=== PATIENT | male | born 1980 | race Caucasian/White ===

== ENCOUNTER 2022-10-24 02:57 | Inpatient (IN) | payer MEDICAID, OTHER ==
[~2022-10-24] VITALS: Ht 182.9 cm; Wt 83.9 kg
[2022-10-24 05:34] LABS: BASOPHILS % (AUTO) 0.4 % (0.0-2.0); EOSINOPHILS % (AUTO) 0.1 % (1.0-6.0); HEMATOCRIT 47.7 % (41-53); LYMPHOCYTES # (AUTO) 1.6 K/uL (1.0-4.8); LYMPHOCYTES % (AUTO) 14.6 % (22.0-44.0); MEAN CORPUSCULAR HEMOGLOBIN 32.6 pg (26.0-34.0); MEAN CORPUSCULAR HGB CONC 33.5 G/dL (31.0-37.0); MEAN CORPUSCULAR VOLUME 97 fL (80-100); MONOCYTES # (AUTO) 1.2 K/uL (0.1-1.0); NEUTROPHILS # (AUTO) 8.1 K/uL (1.8-7.7); NEUTROPHILS % (AUTO) 73.9 % (40.0-70.0); PLATELET COUNT (AUTO) 283 K/uL (150-450); RED CELL DISTRIBUTION WIDTH 13.4 % (11.5-14.5)
[2022-10-24 05:40] LABS: ANION GAP 11 mmol/L (8-16); CALCIUM, TOTAL 9.4 mg/dL (8.8-10.5); CARBON DIOXIDE 29 mmol/L (22-29); CHLORIDE 99 mmol/L (98-107); CREATININE 1.21 mg/dL (0.60-1.30); GLOMERULAR FILTR. RATE CALC > 60 mL/min (>60); GLUCOSE,RANDOM 97 mg/dL (70-110); POTASSIUM 4.5 mmol/L (3.5-5.1); SODIUM SERUM 139 mmol/L (136-145); UREA NITROGEN, BLOOD 21 mg/dL (7-18)
[2022-10-24 05:46] LABS: ALANINE AMINOTRANSFERASE 29 U/L (12-78); ALBUMIN 4.4 g/dL (3.4-5.0); ALKALINE PHOSPHATASE 55 U/L (46-116); ASPARTATE AMINOTRANSFERASE 56 U/L (15-37); BILIRUBIN,TOTAL 0.7 mg/dL (0.1-1.0)
[2022-10-24] MEDS ORDERED: OLANZapine 5 MG TABLET PO ONE (09:15)
[2022-10-24] MEDS ORDERED: LORazepam 1 MG TABLET PO ONE (09:15)
[2022-10-24 11:02] LABS: COVID AG,FIA SOURCE NASAL SWAB
[2022-10-24 14:33] VITALS: BP 135/71
[2022-10-24 16:11] VITALS: BP 143/74
[2022-10-24] MEDS: HALOPERIDOL 5 MG TABLET PO PRN ×2 (16:38→20:38)
[2022-10-24] MEDS: LORazepam 2 MG TABLET PO PRN ×2 (16:38→20:39)
[2022-10-24] MEDS: ZOLPIDEM TARTRATE 10 MG TABLET PO PRN (20:39)
[2022-10-25] MEDS: HALOPERIDOL 5 MG TABLET PO PRN ×3 (02:36→16:55)
[2022-10-25] MEDS: LORazepam 2 MG TABLET PO PRN ×4 (02:36→21:49)
[2022-10-25] MEDS ORDERED: OMEPRAZOLE 20 MG CAPSULE PO PRN (07:00)
[2022-10-25] MEDS ORDERED: ONDANSETRON HCL 4 MG TABLET PO PRN (07:00)
[2022-10-25] MEDS ORDERED: CloNIDine HCL 0.1 MG TABLET PO PRN (07:00)
[2022-10-25] MEDS ORDERED: LOPERAMIDE HCL 2 MG CAPSULE PO PRN (07:00)
[2022-10-25] MEDS ORDERED: MAGNESIUM HYDROXIDE SUSPENSION 30 ML UDCUP PO PRN (07:00)
[2022-10-25] MEDS ORDERED: BACITRACIN 28 GM OINTMENT TP PRN (07:00)
[2022-10-25] MEDS ORDERED: BENZOCAINE/MENTHOL LOZENGE PO PRN (07:00)
[2022-10-25] MEDS ORDERED: ALBUTEROL SULFATE HFA 90 MCG/PUFF 8 GM INHALER IH PRN (07:00)
[2022-10-25] MEDS ORDERED: ACETAMINOPHEN 325 MG TABLET PO PRN (07:00)
[2022-10-25] MEDS ORDERED: DOCUSATE SODIUM 100 MG CAPSULE PO PRN (07:00)
[2022-10-25] MEDS ORDERED: PETROLATUM,WHITE 28 GM JELLY TP PRN (07:00)
[2022-10-25] MEDS ORDERED: MAG HYDROX/AL HYDROX/SIMETH ES 30 ML SUSPENSION UDCUP PO PRN (07:00)
[2022-10-25 08:28] VITALS: BP 130/79
[2022-10-25 20:11] VITALS: BP 128/82
[2022-10-25] MEDS: ZOLPIDEM TARTRATE 10 MG TABLET PO PRN (20:12)
[2022-10-26] MEDS: LORazepam 2 MG TABLET PO PRN ×2 (08:46→17:31)
[2022-10-26] MEDS: HALOPERIDOL 5 MG TABLET PO PRN ×2 (08:46→17:31)
[2022-10-26] MEDS: RisperiDONE 3 MG TABLET PO SCH ×2 (08:46→17:31)
[2022-10-26] MEDS ORDERED: HALOPERIDOL LACTATE 5 MG/ML VIAL IM ONE (10:15)
[2022-10-26] MEDS ORDERED: LORazepam 2 MG/ML VIAL IM ONE (10:15)
[2022-10-26] MEDS ORDERED: LORazepam 2 MG/ML VIAL ONE (10:17)
[2022-10-26] MEDS ORDERED: HALOPERIDOL LACTATE 5 MG/ML VIAL ONE (10:17)
[2022-10-26] MEDS ORDERED: BuPROPion HCL XL 150 MG ER TABLET PO SCH (10:30)
[2022-10-26 20:00] VITALS: BP 142/78
[2022-10-26] MEDS: ZOLPIDEM TARTRATE 10 MG TABLET PO PRN (20:50)
[2022-10-26] MEDS: LITHIUM CARBONATE 300 MG CAPSULE PO SCH (20:50)
[2022-10-26] MEDS: DIVALPROEX SODIUM 500 MG DR TABLET PO SCH (20:50)
[2022-10-27] MEDS: RisperiDONE 3 MG TABLET PO SCH ×2 (08:17→16:41)
[2022-10-27] MEDS: BuPROPion HCL XL 150 MG ER TABLET PO SCH (08:17)
[2022-10-27] MEDS: LITHIUM CARBONATE 300 MG CAPSULE PO SCH ×2 (08:17→20:55)
[2022-10-27] MEDS: DIVALPROEX SODIUM 500 MG DR TABLET PO SCH ×2 (08:17→20:55)
[2022-10-27 08:35] VITALS: BP 138/76
[2022-10-27] MEDS: HALOPERIDOL 5 MG TABLET PO PRN (16:41)
[2022-10-27] MEDS: LORazepam 2 MG TABLET PO PRN ×2 (16:41→20:55)
[2022-10-27 20:16] VITALS: BP 128/80
[2022-10-27] MEDS: ZOLPIDEM TARTRATE 10 MG TABLET PO PRN (20:55)
[2022-10-28 08:14] VITALS: BP 143/64
[2022-10-28] MEDS: RisperiDONE 3 MG TABLET PO SCH ×2 (09:29→16:57)
[2022-10-28] MEDS: LITHIUM CARBONATE 300 MG CAPSULE PO SCH ×2 (09:30→20:23)
[2022-10-28] MEDS: BuPROPion HCL XL 150 MG ER TABLET PO SCH (09:30)
[2022-10-28] MEDS: DIVALPROEX SODIUM 500 MG DR TABLET PO SCH ×2 (09:30→20:23)
[2022-10-28] MEDS: LORazepam 2 MG TABLET PO PRN ×3 (10:45→20:23)
[2022-10-28] MEDS: HALOPERIDOL 5 MG TABLET PO PRN (10:45)
[2022-10-28] MEDS: IBUPROFEN 600 MG TABLET PO PRN (14:57)
[2022-10-28 16:19] VITALS: BP 130/83
[2022-10-28] MEDS: ZOLPIDEM TARTRATE 10 MG TABLET PO PRN (20:23)
[2022-10-28 21:31] VITALS: BP 130/83
[2022-10-29] MEDS: DIVALPROEX SODIUM 500 MG DR TABLET PO SCH ×2 (09:27→20:09)
[2022-10-29] MEDS: BuPROPion HCL XL 150 MG ER TABLET PO SCH (09:28)
[2022-10-29] MEDS: RisperiDONE 3 MG TABLET PO SCH ×2 (09:28→17:46)
[2022-10-29] MEDS: LITHIUM CARBONATE 300 MG CAPSULE PO SCH ×2 (09:28→20:09)
[2022-10-29] MEDS: LORazepam 2 MG TABLET PO PRN ×4 (09:45→23:00)
[2022-10-29 10:25] VITALS: BP 135/78
[2022-10-29] MEDS: HALOPERIDOL 5 MG TABLET PO PRN (16:14)
[2022-10-29 20:08] VITALS: BP 128/64
[2022-10-29] MEDS: IBUPROFEN 600 MG TABLET PO PRN (20:08)
[2022-10-29 20:27] VITALS: BP 138/68
[2022-10-29] MEDS: ZOLPIDEM TARTRATE 10 MG TABLET PO PRN (23:23)
[2022-10-30 08:21] VITALS: BP 139/67
[2022-10-30] MEDS: LITHIUM CARBONATE 300 MG CAPSULE PO SCH ×2 (08:22→20:25)
[2022-10-30] MEDS: RisperiDONE 3 MG TABLET PO SCH ×2 (08:23→16:02)
[2022-10-30] MEDS: BuPROPion HCL XL 150 MG ER TABLET PO SCH (08:23)
[2022-10-30] MEDS: DIVALPROEX SODIUM 500 MG DR TABLET PO SCH ×2 (08:23→20:25)
[2022-10-30] MEDS: IBUPROFEN 600 MG TABLET PO PRN (10:53)
[2022-10-30] MEDS: LORazepam 2 MG TABLET PO PRN ×2 (10:53→14:54)
[2022-10-30] MEDS: HALOPERIDOL 5 MG TABLET PO PRN (14:54)
[2022-10-30 20:13] VITALS: BP 125/82
[2022-10-31] MEDS: ZOLPIDEM TARTRATE 10 MG TABLET PO PRN (00:04)
[2022-10-31] MEDS: LORazepam 2 MG TABLET PO PRN ×3 (03:03→15:59)
[2022-10-31] MEDS: HALOPERIDOL 5 MG TABLET PO PRN ×3 (03:04→15:59)
[2022-10-31 07:26] LABS: GLUCOMETER DEV NAME(LOC) POC.BV
[2022-10-31] MEDS: RisperiDONE 3 MG TABLET PO SCH ×2 (08:09→16:00)
[2022-10-31] MEDS: BuPROPion HCL XL 150 MG ER TABLET PO SCH (08:09)
[2022-10-31] MEDS: LITHIUM CARBONATE 300 MG CAPSULE PO SCH ×2 (08:09→20:38)
[2022-10-31] MEDS: DIVALPROEX SODIUM 500 MG DR TABLET PO SCH ×2 (08:09→20:38)
[2022-10-31 20:46] VITALS: BP 114/67
[2022-11-01] MEDS: BuPROPion HCL XL 150 MG ER TABLET PO SCH (08:05)
[2022-11-01] MEDS: DIVALPROEX SODIUM 500 MG DR TABLET PO SCH ×2 (08:05→20:14)
[2022-11-01] MEDS: RisperiDONE 3 MG TABLET PO SCH ×2 (08:05→16:39)
[2022-11-01] MEDS: LITHIUM CARBONATE 300 MG CAPSULE PO SCH ×2 (08:06→20:14)
[2022-11-01 08:22] VITALS: BP 117/67
[2022-11-01] MEDS: LORazepam 2 MG TABLET PO PRN ×3 (10:08→20:14)
[2022-11-01 20:20] VITALS: BP 124/70
[2022-11-01] MEDS: ZOLPIDEM TARTRATE 10 MG TABLET PO PRN (20:48)
[2022-11-01] MEDS: IBUPROFEN 600 MG TABLET PO PRN (21:10)
[2022-11-02 06:29] VITALS: BP 123/78
[2022-11-02] MEDS: LORazepam 2 MG TABLET PO PRN ×3 (06:33→20:37)
[2022-11-02] MEDS: HALOPERIDOL 5 MG TABLET PO PRN (06:33)
[2022-11-02] MEDS: IBUPROFEN 600 MG TABLET PO PRN (06:33)
[2022-11-02] MEDS: LITHIUM CARBONATE 300 MG CAPSULE PO SCH ×2 (08:02→20:37)
[2022-11-02] MEDS: BuPROPion HCL 75 MG TABLET PO SCH (08:02)
[2022-11-02] MEDS: DIVALPROEX SODIUM 500 MG DR TABLET PO SCH ×2 (08:02→20:37)
[2022-11-02] MEDS: RisperiDONE 3 MG TABLET PO SCH ×2 (08:02→16:56)
[2022-11-02 09:58] VITALS: BP 121/72
[2022-11-02 20:09] VITALS: BP 115/70
[2022-11-02] MEDS: ZOLPIDEM TARTRATE 10 MG TABLET PO PRN (21:26)
[2022-11-03] MEDS: DIVALPROEX SODIUM 500 MG DR TABLET PO SCH ×2 (08:02→20:15)
[2022-11-03] MEDS: LORazepam 2 MG TABLET PO PRN ×2 (08:02→14:42)
[2022-11-03] MEDS: BuPROPion HCL 75 MG TABLET PO SCH (08:02)
[2022-11-03] MEDS: LITHIUM CARBONATE 300 MG CAPSULE PO SCH ×2 (08:02→20:15)
[2022-11-03] MEDS: RisperiDONE 3 MG TABLET PO SCH ×2 (08:02→16:33)
[2022-11-03 08:05] VITALS: BP 110/70
[2022-11-03 20:22] VITALS: BP 117/66
[2022-11-04] MEDS: HALOPERIDOL 5 MG TABLET PO PRN (00:09)
[2022-11-04] MEDS: ZOLPIDEM TARTRATE 10 MG TABLET PO PRN (00:09)
[2022-11-04] MEDS: LORazepam 2 MG TABLET PO PRN ×3 (00:09→19:07)
[2022-11-04 08:05] VITALS: BP 115/73
[2022-11-04] MEDS: LITHIUM CARBONATE 300 MG CAPSULE PO SCH ×2 (08:23→20:25)
[2022-11-04] MEDS: BuPROPion HCL 75 MG TABLET PO SCH (08:23)
[2022-11-04] MEDS: DIVALPROEX SODIUM 500 MG DR TABLET PO SCH ×2 (08:23→20:24)
[2022-11-04] MEDS: RisperiDONE 3 MG TABLET PO SCH ×2 (08:23→16:16)
[2022-11-04 20:10] VITALS: BP 121/62
[2022-11-05] MEDS: RisperiDONE 3 MG TABLET PO SCH ×2 (08:16→16:12)
[2022-11-05] MEDS: LITHIUM CARBONATE 300 MG CAPSULE PO SCH ×2 (08:16→20:03)
[2022-11-05] MEDS: BuPROPion HCL 75 MG TABLET PO SCH (08:16)
[2022-11-05] MEDS: DIVALPROEX SODIUM 500 MG DR TABLET PO SCH ×2 (08:16→20:03)
[2022-11-05 08:46] VITALS: BP 111/74
[2022-11-05] MEDS: LORazepam 2 MG TABLET PO PRN ×2 (11:46→20:03)
[2022-11-05 20:11] VITALS: BP 124/73
[2022-11-05] MEDS: ZOLPIDEM TARTRATE 10 MG TABLET PO PRN (21:03)
[2022-11-06] MEDS: LORazepam 2 MG TABLET PO PRN ×2 (08:00→15:45)
[2022-11-06] MEDS: RisperiDONE 3 MG TABLET PO SCH ×2 (08:00→16:05)
[2022-11-06] MEDS: LITHIUM CARBONATE 300 MG CAPSULE PO SCH ×2 (08:00→20:04)
[2022-11-06] MEDS: DIVALPROEX SODIUM 500 MG DR TABLET PO SCH ×2 (08:00→20:02)
[2022-11-06] MEDS: BuPROPion HCL 75 MG TABLET PO SCH (08:01)
[2022-11-06 08:19] VITALS: BP 124/70
[2022-11-06] MEDS: HALOPERIDOL 5 MG TABLET PO PRN (15:47)
[2022-11-06] MEDS: ZOLPIDEM TARTRATE 10 MG TABLET PO PRN (20:04)
[2022-11-06 20:18] VITALS: BP 128/68
[2022-11-07] MEDS: LORazepam 2 MG TABLET PO PRN ×3 (08:00→20:02)
[2022-11-07] MEDS: BuPROPion HCL 75 MG TABLET PO SCH (08:00)
[2022-11-07] MEDS: RisperiDONE 3 MG TABLET PO SCH ×2 (08:00→16:49)
[2022-11-07] MEDS: LITHIUM CARBONATE 300 MG CAPSULE PO SCH ×2 (08:00→20:02)
[2022-11-07] MEDS: DIVALPROEX SODIUM 500 MG DR TABLET PO SCH ×2 (08:00→20:02)
[2022-11-07 08:48] VITALS: BP 118/69
[2022-11-07 16:11] LABS: GLUCOMETER DEV NAME(LOC) POC.BV
[2022-11-07] MEDS: HALOPERIDOL 5 MG TABLET PO PRN (20:02)
[2022-11-07 20:03] VITALS: BP 121/77
[2022-11-07] MEDS: ZOLPIDEM TARTRATE 10 MG TABLET PO PRN (21:29)
[2022-11-08 08:01] VITALS: BP 100/65
[2022-11-08] MEDS: BuPROPion HCL 75 MG TABLET PO SCH (08:01)
[2022-11-08] MEDS: DIVALPROEX SODIUM 500 MG DR TABLET PO SCH ×2 (08:01→20:07)
[2022-11-08] MEDS: LITHIUM CARBONATE 300 MG CAPSULE PO SCH ×2 (08:01→20:07)
[2022-11-08] MEDS: RisperiDONE 3 MG TABLET PO SCH ×2 (08:01→16:13)
[2022-11-08 20:06] VITALS: BP 130/70
[2022-11-09] MEDS: RisperiDONE 3 MG TABLET PO SCH ×2 (09:10→16:22)
[2022-11-09] MEDS: BuPROPion HCL 75 MG TABLET PO SCH (09:10)
[2022-11-09] MEDS: LITHIUM CARBONATE 300 MG CAPSULE PO SCH ×2 (09:12→20:26)
[2022-11-09] MEDS: DIVALPROEX SODIUM 500 MG DR TABLET PO SCH ×2 (09:12→20:26)
[2022-11-09 10:04] VITALS: BP 118/74
[2022-11-09 20:03] VITALS: BP 134/83
[2022-11-10] MEDS: LITHIUM CARBONATE 300 MG CAPSULE PO SCH ×2 (08:47→20:28)
[2022-11-10] MEDS: RisperiDONE 3 MG TABLET PO SCH ×2 (08:47→16:25)
[2022-11-10] MEDS: DIVALPROEX SODIUM 500 MG DR TABLET PO SCH ×2 (08:47→20:28)
[2022-11-10] MEDS: BuPROPion HCL 75 MG TABLET PO SCH (08:47)
[2022-11-10 09:05] VITALS: BP 135/80
[2022-11-10] MEDS: LORazepam 2 MG TABLET PO PRN (10:14)
[2022-11-10 17:58] VITALS: BP 136/80
[2022-11-10] MEDS: IBUPROFEN 600 MG TABLET PO PRN (17:58)
[2022-11-10 20:04] VITALS: BP 130/76
[2022-11-11 07:58] LABS: VALPROIC ACID 5 mcg/mL (50-100)
[2022-11-11 08:01] LABS: LITHIUM < 0.20 mmol/L (0.60-1.20)
[2022-11-11] MEDS: BuPROPion HCL 75 MG TABLET PO SCH (08:03)
[2022-11-11] MEDS: RisperiDONE 3 MG TABLET PO SCH ×2 (08:03→16:09)
[2022-11-11] MEDS: LITHIUM CARBONATE 300 MG CAPSULE PO SCH ×2 (08:03→20:14)
[2022-11-11] MEDS: LORazepam 2 MG TABLET PO PRN ×2 (08:03→16:11)
[2022-11-11] MEDS: DIVALPROEX SODIUM 500 MG DR TABLET PO SCH ×2 (08:03→20:14)
[2022-11-11 08:54] VITALS: BP 108/75
[2022-11-11 16:11] VITALS: BP 131/76
[2022-11-11] MEDS: IBUPROFEN 600 MG TABLET PO PRN (16:11)
[2022-11-11] MEDS: HALOPERIDOL 5 MG TABLET PO PRN (16:11)
[2022-11-11 20:05] VITALS: BP 118/66
[2022-11-11] MEDS: ZOLPIDEM TARTRATE 10 MG TABLET PO PRN (20:52)
[2022-11-12] MEDS: DIVALPROEX SODIUM 500 MG DR TABLET PO SCH ×2 (08:12→20:14)
[2022-11-12] MEDS: RisperiDONE 3 MG TABLET PO SCH ×2 (08:12→16:11)
[2022-11-12] MEDS: LITHIUM CARBONATE 300 MG CAPSULE PO SCH ×2 (08:12→20:14)
[2022-11-12] MEDS: BuPROPion HCL 75 MG TABLET PO SCH (08:12)
[2022-11-12 08:31] VITALS: BP 114/76
[2022-11-12] MEDS: HALOPERIDOL 5 MG TABLET PO PRN (09:04)
[2022-11-12] MEDS: LORazepam 2 MG TABLET PO PRN (09:04)
[2022-11-12 20:16] VITALS: BP 120/72
[2022-11-13] MEDS: BuPROPion HCL 75 MG TABLET PO SCH (08:11)
[2022-11-13] MEDS: RisperiDONE 3 MG TABLET PO SCH ×2 (08:11→16:28)
[2022-11-13 08:23] VITALS: BP 113/78
[2022-11-13] MEDS: LITHIUM CARBONATE 300 MG CAPSULE PO SCH ×2 (09:00→20:06)
[2022-11-13] MEDS: DIVALPROEX SODIUM 500 MG DR TABLET PO SCH ×2 (09:00→20:06)
[2022-11-13 20:03] VITALS: BP 135/77
[2022-11-14] MEDS: BuPROPion HCL 75 MG TABLET PO SCH (08:09)
[2022-11-14] MEDS: RisperiDONE 3 MG TABLET PO SCH ×2 (08:18→16:12)
[2022-11-14] MEDS: LITHIUM CARBONATE 300 MG CAPSULE PO SCH ×2 (08:18→20:19)
[2022-11-14] MEDS: DIVALPROEX SODIUM 500 MG DR TABLET PO SCH ×2 (08:18→20:19)
[2022-11-14 09:02] VITALS: BP 127/70
[2022-11-14] MEDS: LORazepam 2 MG TABLET PO PRN ×2 (12:02→16:12)
[2022-11-14 20:22] VITALS: BP 115/64
[2022-11-14 21:06] LABS: GLUCOMETER DEV NAME(LOC) POC.BV
[2022-11-15] MEDS: LORazepam 2 MG TABLET PO PRN ×2 (03:46→13:52)
[2022-11-15] MEDS: BuPROPion HCL 75 MG TABLET PO SCH (08:11)
[2022-11-15] MEDS: RisperiDONE 3 MG TABLET PO SCH ×4 (08:11→17:18)
[2022-11-15] MEDS: LITHIUM CARBONATE 300 MG CAPSULE PO SCH ×3 (08:11→21:00)
[2022-11-15] MEDS: DIVALPROEX SODIUM 500 MG DR TABLET PO SCH ×3 (08:11→21:00)
[2022-11-15 08:26] VITALS: BP 130/82
[2022-11-15] MEDS: HALOPERIDOL 5 MG TABLET PO PRN (13:52)
[2022-11-15 20:36] VITALS: BP 104/65
[2022-11-15] MEDS ORDERED: SUMAtriptan SUCCINATE 25 MG TABLET PO ONE (21:15)
[2022-11-16 01:01] VITALS: BP 110/70
[2022-11-16] MEDS: LORazepam 2 MG TABLET PO PRN ×2 (01:07→08:47)
[2022-11-16] MEDS: HALOPERIDOL 5 MG TABLET PO PRN ×2 (01:07→08:47)
[2022-11-16 04:52] VITALS: BP 111/69
[2022-11-16 04:56] VITALS: BP 111/69
[2022-11-16] MEDS: SUMAtriptan SUCCINATE 25 MG TABLET PO PRN (04:56)
[2022-11-16] MEDS: BuPROPion HCL 75 MG TABLET PO SCH (08:02)
[2022-11-16] MEDS: DIVALPROEX SODIUM 500 MG DR TABLET PO SCH ×2 (08:04→20:46)
[2022-11-16] MEDS: LITHIUM CARBONATE 300 MG CAPSULE PO SCH ×2 (08:04→20:46)
[2022-11-16 08:27] VITALS: BP 144/79
[2022-11-16] MEDS: RisperiDONE 3 MG TABLET PO SCH (16:44)
[2022-11-16 20:23] VITALS: BP 120/70
[2022-11-17] MEDS: LITHIUM CARBONATE 300 MG CAPSULE PO SCH ×2 (08:25→21:00)
[2022-11-17] MEDS: DIVALPROEX SODIUM 500 MG DR TABLET PO SCH ×2 (08:25→21:00)
[2022-11-17] MEDS: BuPROPion HCL 75 MG TABLET PO SCH (08:25)
[2022-11-17] MEDS: RisperiDONE 3 MG TABLET PO SCH ×2 (08:25→17:00)
[2022-11-17 08:44] VITALS: BP 119/70
[2022-11-17] MEDS: SUMAtriptan SUCCINATE 25 MG TABLET PO PRN (09:30)
[2022-11-17 20:40] VITALS: BP 125/75
[2022-11-18] MEDS: BuPROPion HCL 75 MG TABLET PO SCH (08:18)
[2022-11-18] MEDS: LITHIUM CARBONATE 300 MG CAPSULE PO SCH ×2 (08:19→20:22)
[2022-11-18] MEDS: DIVALPROEX SODIUM 500 MG DR TABLET PO SCH ×2 (08:19→20:21)
[2022-11-18] MEDS: RisperiDONE 3 MG TABLET PO SCH ×2 (08:19→16:28)
[2022-11-18 11:14] VITALS: BP 137/93
[2022-11-18 20:43] VITALS: BP 133/63
[2022-11-19] MEDS: HALOPERIDOL 5 MG TABLET PO PRN ×2 (02:53→16:27)
[2022-11-19] MEDS: LORazepam 2 MG TABLET PO PRN ×2 (02:53→16:27)
[2022-11-19] MEDS: ZOLPIDEM TARTRATE 10 MG TABLET PO PRN ×2 (02:53→20:22)
[2022-11-19] MEDS: RisperiDONE 3 MG TABLET PO SCH ×4 (08:01→16:27)
[2022-11-19] MEDS: DIVALPROEX SODIUM 500 MG DR TABLET PO SCH ×4 (08:01→20:22)
[2022-11-19] MEDS: BuPROPion HCL 75 MG TABLET PO SCH (08:01)
[2022-11-19] MEDS: LITHIUM CARBONATE 300 MG CAPSULE PO SCH ×4 (08:01→20:22)
[2022-11-19 09:24] VITALS: BP 103/60
[2022-11-20 08:02] VITALS: BP 111/73
[2022-11-20] MEDS: LITHIUM CARBONATE 300 MG CAPSULE PO SCH ×2 (08:26→20:31)
[2022-11-20] MEDS: RisperiDONE 3 MG TABLET PO SCH ×2 (08:26→16:30)
[2022-11-20] MEDS: DIVALPROEX SODIUM 500 MG DR TABLET PO SCH ×2 (08:26→20:31)
[2022-11-20] MEDS: BuPROPion HCL 75 MG TABLET PO SCH (08:26)
[2022-11-20 20:18] VITALS: BP 118/68
[2022-11-21] MEDS: LITHIUM CARBONATE 300 MG CAPSULE PO SCH ×2 (08:03→20:09)
[2022-11-21] MEDS: DIVALPROEX SODIUM 500 MG DR TABLET PO SCH ×2 (08:03→20:09)
[2022-11-21] MEDS: RisperiDONE 3 MG TABLET PO SCH ×2 (08:03→16:12)
[2022-11-21] MEDS: BuPROPion HCL 75 MG TABLET PO SCH (08:03)
[2022-11-21 08:12] VITALS: BP 123/74
[2022-11-21] MEDS: HALOPERIDOL 5 MG TABLET PO PRN ×2 (17:28→21:31)
[2022-11-21] MEDS: LORazepam 2 MG TABLET PO PRN ×2 (17:28→21:31)
[2022-11-21 20:05] VITALS: BP 114/90
[2022-11-21] MEDS: ZOLPIDEM TARTRATE 10 MG TABLET PO PRN (20:09)
[2022-11-22] MEDS: LORazepam 2 MG TABLET PO PRN ×2 (06:27→13:11)
[2022-11-22] MEDS: HALOPERIDOL 5 MG TABLET PO PRN (06:27)
[2022-11-22] MEDS: LITHIUM CARBONATE 300 MG CAPSULE PO SCH (08:16)
[2022-11-22] MEDS: RisperiDONE 3 MG TABLET PO SCH (08:17)
[2022-11-22] MEDS: DIVALPROEX SODIUM 500 MG DR TABLET PO SCH (08:17)
[2022-11-22] MEDS: BuPROPion HCL 75 MG TABLET PO SCH (08:17)
[2022-11-22 08:45] VITALS: BP 108/60
[2022-11-22] MEDS: SUMAtriptan SUCCINATE 25 MG TABLET PO PRN (14:34)
[2022-11-22] MEDS ORDERED: DIVA-112 PO ×2 (16:54→18:06)
[2022-11-22] MEDS ORDERED: LITH300C3 PO ×2 (16:54→18:06)
[2022-11-22] MEDS ORDERED: BUPR-344 PO ×2 (16:54→18:06)
[2022-11-22] MEDS ORDERED: RISP3TAB35 PO (16:54)
[2022-11-22] MEDS ORDERED: RISP3TAB63 PO (18:06)
== END 2022-11-22 17:00 | disposition home or self-care (01) | DRG 750 ==
LOC: EMS 02:58 → B3A 12:25 → B2S 11-15 11:51 → B3A 11-16 08:39
PROVIDERS: ADMIT Psychiatry & Neurology Psychiatry; ATTEND Psychiatry & Neurology Psychiatry
DX: F25.9 Schizoaffective disorder, unspecified (principal); R45.851 Suicidal ideations; Z91.148 Patient's other noncompliance with medication regimen for other reason; F41.9 Anxiety disorder, unspecified; F32.A Depression, unspecified; F19.10 Other psychoactive substance abuse, uncomplicated; G47.00 Insomnia, unspecified; K59.00 Constipation, unspecified; Z20.822 Contact with and (suspected) exposure to COVID-19; F10.20 Alcohol dependence, uncomplicated; Z72.0 Tobacco use
CPT/HCPCS: 80053; 80164; 80178; 85025; 99285; G0480; J1630; J2060

== ENCOUNTER → 2024-11-06 | Emergency (ER) | payer MEDICAID, OTHER ==
[~2024-11-06] VITALS: Ht 182.9 cm; Wt 77.3 kg
[~2024-11-06] MED LIST: BUPR-344 PO; DIVA-112 PO; LITH300C3 PO; RISP3TAB35 PO; RISP3TAB77 PO
[2024-11-06 07:09] VITALS: TEMP 98.6
[2024-11-06] MEDS: LORazepam 1 MG TABLET PO ONE (07:22)
[2024-11-06] MEDS: BACITRACIN 28 GM OINTMENT TP ONE (08:00)
[2024-11-06 08:14] LABS: ALCOHOL, URINE DRUG SCREEN NEGATIVE (NEGATIVE); AMPHET/METH SCREEN,URINE POSITIVE (NEGATIVE); BARBITURATE SCREEN, URINE NEGATIVE (NEGATIVE); BENZODIAZEPINES SCREEN,URINE NEGATIVE (NEGATIVE); CANNABINOID SCREEN,URINE NEGATIVE (NEGATIVE); COCAINE SCREEN,URINE NEGATIVE (NEGATIVE); METHADONE SCREEN, URINE NEGATIVE (NEGATIVE); OPIATE SCREEN,URINE NEGATIVE (NEGATIVE); PHENCYCLIDINE SCREEN,URINE NEGATIVE (NEGATIVE)
[2024-11-06 08:25] LABS: BASOPHILS % (AUTO) 0.4 % (0.0-2.0); EOSINOPHILS % (AUTO) 0.5 % (1.0-6.0); HEMATOCRIT 44.5 % (41-53); LYMPHOCYTES # (AUTO) 1.2 K/uL (1.0-4.8); LYMPHOCYTES % (AUTO) 13.9 % (22.0-44.0); MEAN CORPUSCULAR HEMOGLOBIN 32.3 pg (26.0-34.0); MEAN CORPUSCULAR HGB CONC 33.6 G/dL (31.0-37.0); MEAN CORPUSCULAR VOLUME 96 fL (80-100); MONOCYTES # (AUTO) 0.8 K/uL (0.1-1.0); MONOCYTES % (AUTO) 9.2 % (2.0-9.0); NEUTROPHILS # (AUTO) 6.7 K/uL (1.8-7.7); PLATELET COUNT (AUTO) 347 K/uL (150-450); RED BLOOD CELL COUNT(AUTO) 4.63 MIL/uL (4.50-5.90); RED CELL DISTRIBUTION WIDTH 13.9 % (11.5-14.5); WHITE BLOOD COUNT (AUTO) 8.8 K/uL (4.5-11.0)
[2024-11-06 08:34] LABS: ANION GAP 8 mmol/L (8-16); CALCIUM, TOTAL 9.3 mg/dL (8.8-10.5); CARBON DIOXIDE 30 mmol/L (22-29); CHLORIDE 101 mmol/L (98-107); CREATININE 0.92 mg/dL (0.60-1.30); GLOMERULAR FILTR. RATE CALC > 60 mL/min (>60); GLUCOSE,RANDOM 119 mg/dL (70-110); SODIUM SERUM 139 mmol/L (136-145); UREA NITROGEN, BLOOD 22 mg/dL (7-18)
[2024-11-06 08:53] LABS: PH,URINE DRUG SCREEN 5.5 (5.0-8.0)
[2024-11-06] MEDS: RisperiDONE 1 MG TABLET PO ONE (09:22)
[2024-11-06 09:35] VITALS: BP 159/87; PULSE 87; RESP 18; O2SAT 99
== END | disposition home or self-care (01) ==
LOC: EMS 06:54
DX: F25.9 Schizoaffective disorder, unspecified (principal); F12.90 Cannabis use, unspecified, uncomplicated; F17.210 Nicotine dependence, cigarettes, uncomplicated; Z79.899 Other long term (current) drug therapy
CPT/HCPCS: 80048; 80307; 85025; 99284

== ENCOUNTER → 2024-11-21 | Emergency (ER) | payer MEDICAID, OTHER ==
[~2024-11-21] VITALS: Ht 185.4 cm; Wt 81.8 kg
[2024-11-21 21:27] VITALS: BP 136/82; PULSE 117; RESP 14; TEMP 98.2; O2SAT 96
[2024-11-21 21:59] LABS: COVID AG,FIA SOURCE NASAL SWAB
[2024-11-21 22:08] LABS: ANION GAP 6 mmol/L (8-16); BASOPHILS % (AUTO) 0.7 % (0.0-2.0); CARBON DIOXIDE 30 mmol/L (22-29); CHLORIDE 107 mmol/L (98-107); CREATININE 1.22 mg/dL (0.60-1.30); EOSINOPHILS % (AUTO) 0.4 % (1.0-6.0); GLOMERULAR FILTR. RATE CALC > 60 mL/min (>60); GLUCOSE,RANDOM 106 mg/dL (70-110); LYMPHOCYTES # (AUTO) 1.4 K/uL (1.0-4.8); LYMPHOCYTES % (AUTO) 18.4 % (22.0-44.0); MEAN CORPUSCULAR HGB CONC 33.2 G/dL (31.0-37.0); MEAN CORPUSCULAR VOLUME 96 fL (80-100); MONOCYTES # (AUTO) 0.8 K/uL (0.1-1.0); MONOCYTES % (AUTO) 10.8 % (2.0-9.0); NEUTROPHILS # (AUTO) 5.4 K/uL (1.8-7.7); NEUTROPHILS % (AUTO) 69.7 % (40.0-70.0); PLATELET COUNT (AUTO) 236 K/uL (150-450); POTASSIUM 4.1 mmol/L (3.5-5.1); RED BLOOD CELL COUNT(AUTO) 4.67 MIL/uL (4.50-5.90); SODIUM SERUM 143 mmol/L (136-145); UREA NITROGEN, BLOOD 20 mg/dL (7-18); WHITE BLOOD COUNT (AUTO) 7.7 K/uL (4.5-11.0)
[2024-11-21 22:21] LABS: SARS-COV2 (COVID) ANTIGEN,FIA Negative (Negative)
== END | disposition left against medical advice (07) ==
LOC: EMS 21:21
DX: R44.3 Hallucinations, unspecified (principal); Z20.822 Contact with and (suspected) exposure to COVID-19; Z53.21 Procedure and treatment not carried out due to patient leaving prior to being seen by health care provider
CPT/HCPCS: 87426; 80048; 85025; G0480; 99283

== ENCOUNTER 2025-02-25 15:03 | Emergency (ER) | payer MEDICAID, OTHER ==
[~2025-02-25] VITALS: Ht 185.4 cm; Wt 81.8 kg
[2025-02-25 15:11] VITALS: BP 109/79; PULSE 98; RESP 18; TEMP 98; O2SAT 99
== END 2025-02-25 16:43 | disposition home or self-care (01) ==
LOC: EMS 15:03
DX: F19.10 Other psychoactive substance abuse, uncomplicated (principal); F31.9 Bipolar disorder, unspecified; F17.210 Nicotine dependence, cigarettes, uncomplicated; F15.90 Other stimulant use, unspecified, uncomplicated; F11.90 Opioid use, unspecified, uncomplicated; F14.90 Cocaine use, unspecified, uncomplicated; F12.90 Cannabis use, unspecified, uncomplicated; F10.90 Alcohol use, unspecified, uncomplicated; Y90.9 Presence of alcohol in blood, level not specified
CPT/HCPCS: 99282; Z7502

== ENCOUNTER 2025-03-13 08:07 | Emergency (ER) | payer MEDICAID, OTHER ==
[~2025-03-13] VITALS: Ht 182.9 cm; Wt 79.5 kg
[2025-03-13 08:08] VITALS: BP 148/99; PULSE 107; RESP 18; TEMP 98.4; O2SAT 97
[2025-03-13] MEDS: ACETAMINOPHEN 500 MG TABLET PO ONE (08:45)
[2025-03-13] MEDS: BACITRACIN 0.9 GM PACKET OINTMENT TP ONE (08:45)
[2025-03-13 08:56] LABS: COVID AG,FIA SOURCE NASAL SWAB
[2025-03-13 09:16] LABS: SARS-COV2 (COVID) ANTIGEN,FIA Negative (Negative)
[2025-03-13 10:07] LABS: PLATELET COUNT (AUTO) 244 K/uL (150-450); RED BLOOD CELL COUNT(AUTO) 4.75 MIL/uL (4.50-5.90); RED CELL DISTRIBUTION WIDTH 13.9 % (11.5-14.5); WHITE BLOOD COUNT (AUTO) 6.0 K/uL (4.5-11.0)
[2025-03-13 10:15] LABS: CALCIUM, TOTAL 9.0 mg/dL (8.8-10.5); CREATININE 1.00 mg/dL (0.60-1.30); GLOMERULAR FILTR. RATE CALC > 60 mL/min (>60); GLUCOSE,RANDOM 93 mg/dL (70-110); SODIUM SERUM 139 mmol/L (136-145); UREA NITROGEN, BLOOD 14 mg/dL (7-18)
[2025-03-13 10:32] LABS: PH,URINE DRUG SCREEN 5.5 (5.0-8.0)
[2025-03-13 10:55] LABS: AMPHET/METH SCREEN,URINE POSITIVE (NEGATIVE); BARBITURATE SCREEN, URINE NEGATIVE (NEGATIVE); CANNABINOID SCREEN,URINE NEGATIVE (NEGATIVE); COCAINE SCREEN,URINE NEGATIVE (NEGATIVE); METHADONE SCREEN, URINE NEGATIVE (NEGATIVE)
[2025-03-13 11:03] LABS: ALCOHOL, URINE DRUG SCREEN NEGATIVE (NEGATIVE)
== END 2025-03-13 10:47 ==
LOC: EMS 08:08
DX: F41.9 Anxiety disorder, unspecified (principal); M79.671 Pain in right foot; F19.10 Other psychoactive substance abuse, uncomplicated; F31.9 Bipolar disorder, unspecified; F15.90 Other stimulant use, unspecified, uncomplicated; F11.90 Opioid use, unspecified, uncomplicated; F14.90 Cocaine use, unspecified, uncomplicated; F12.90 Cannabis use, unspecified, uncomplicated; F17.210 Nicotine dependence, cigarettes, uncomplicated; F10.90 Alcohol use, unspecified, uncomplicated; Z20.822 Contact with and (suspected) exposure to COVID-19; Y90.9 Presence of alcohol in blood, level not specified
CPT/HCPCS: 99285; 87426; 80048; 85025; 36415; 73630; 80307; G0480

== ENCOUNTER 2025-03-17 14:38 | Emergency (ER) | payer MEDICAID, OTHER ==
[~2025-03-17] VITALS: Ht 182.9 cm; Wt 79.5 kg
[2025-03-17 14:46] VITALS: BP 120/76; PULSE 87; RESP 18; TEMP 98.8; O2SAT 98
[2025-03-17 15:25] LABS: APPEARANCE,URINE CLEAR (CLEAR); GLUCOSE, URINE (UA) NEGATIVE (NEGATIVE); LEUKOCYTE ESTERASE ,URINE NEGATIVE (NEGATIVE); NITRATE,URINE NEGATIVE (NEGATIVE); OCCULT BLOOD,URINE NEGATIVE (NEGATIVE); PH,URINE DRUG SCREEN 5.5 (5.0-8.0); SPECIFIC GRAVITIY, URINE 1.034 (1.003-1.030)
[2025-03-17 15:30] LABS: ALCOHOL, URINE DRUG SCREEN NEGATIVE (NEGATIVE); AMPHET/METH SCREEN,URINE POSITIVE (NEGATIVE); BARBITURATE SCREEN, URINE NEGATIVE (NEGATIVE); CANNABINOID SCREEN,URINE NEGATIVE (NEGATIVE); COCAINE SCREEN,URINE NEGATIVE (NEGATIVE); METHADONE SCREEN, URINE NEGATIVE (NEGATIVE)
[2025-03-17 15:37] LABS: SQUAMOUS EPITHELIAL CELL,UR Rare /LPF (None Seen)
== END 2025-03-17 17:13 | disposition left against medical advice (07) ==
LOC: EMS 14:38
DX: R45.851 Suicidal ideations (principal); Z53.21 Procedure and treatment not carried out due to patient leaving prior to being seen by health care provider
CPT/HCPCS: 80307; 81001